=== PATIENT | female | born 1975 | race Caucasian/White ===

== ENCOUNTER 2020-06-27 20:06 | Emergency (ER) | payer OTHER ==
[~2020-06-27] VITALS: Ht 154.9 cm; Wt 53.5 kg
[~2020-06-27 20:06] MED LIST: Z.0.ADDERALL XR 3030 PO; Z.0.AMBIEN10 MG PO; Z.0.CLONAZEPAM0.5 MG PO; Z.0.CYMBALTA60 MG; Z.0.LORAZEPAM0.5 MG PO; Z.0.SYNTHROID75 MCG
[2020-06-27] MEDS ORDERED: TETANUS/DIPHTHERIA TOX ADULT 0.5 ML SYR IM ONE (20:30)
[2020-06-27 21:45] VITALS: BP 138/76
== END 2020-06-27 21:48 | disposition home or self-care (01) ==
LOC: ER 20:32
DX: S61.011A Laceration without foreign body of right thumb without damage to nail, initial encounter (principal); W26.8XXA Contact with other sharp object(s), not elsewhere classified, initial encounter; Y93.G3 Activity, cooking and baking; Y92.000 Kitchen of unspecified non-institutional (private) residence as the place of occurrence of the external cause
CPT/HCPCS: 90471; 90714; 99283